=== PATIENT | female | born 1930 | race Caucasian/White ===

== ENCOUNTER 2017-09-18 08:10 | Emergency (ER) | payer OTHER ==
[~2017-09-18] VITALS: Ht 160 cm; Wt 53.0 kg
[2017-09-18 08:15] VITALS: BP 136/71; PULSE 74; RESP 16; TEMP 97.3; O2SAT 97
[2017-09-18] MEDS ORDERED: TETANUS/DIPHTHERIA TOXOID ADULT 0.5 ML VIAL IM ONE (09:00)
[2017-09-18] MEDS ORDERED: CEPH-460 PO ×2 (09:31→09:39)
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
== END 2017-09-18 09:53 | disposition home or self-care (01) ==
LOC: PHEFT 08:10
DX: L03.116 Cellulitis of left lower limb (principal); L03.115 Cellulitis of right lower limb; Z23 Encounter for immunization
CPT/HCPCS: 90471; 90714